=== PATIENT | female | born 1985 | race African-American/Black ===

== ENCOUNTER 2019-05-06 10:52 | Emergency (ER) | payer BC ==
[~2019-05-06] VITALS: Ht 154.9 cm; Wt 57.6 kg
[2019-05-06 11:20] LABS: URINE BILIRUBIN NEGATIVE (Negative); URINE BLOOD 1+ (Negative); URINE CLARITY CLEAR; URINE COLOR YELLOW; URINE GLUCOSE-RANDOM NEGATIVE (Negative); URINE KETONES NEGATIVE (Negative); URINE NITRITE-REFLEX NEGATIVE (Negative); URINE PROTEIN NEGATIVE (Negative); URINE UROBILINOGEN 0.2 E.U./dl (0.2-1.0)
[2019-05-06 11:21] LABS: URINE LEUKOCYTES-REFLEX 3+ (Negative)
[2019-05-06 11:32] LABS: BACTERIA-REFLEX 1-9 Few /HPF (None Seen); SQUAMOUS >10 Many /LPF (0-3); URINE RBC 0-2 Rare /HPF (0-2)
[2019-05-06 11:33] LABS: CASTS None Seen /LPF (None Seen); CRYSTALS None Seen /LPF (None Seen); MUCUS None Seen strn/LPF (None Seen)
[2019-05-06] MEDS ORDERED: MACROBID 100 M100 M2 PO (12:19)
[2019-05-06] MEDS ORDERED: DIFLUCAN150 M1 PO (12:19)
[2019-05-06] MEDS ORDERED: FLAGYL500 M1 PO (12:19)
[2019-05-06 12:43] VITALS: BP 137/85
== END 2019-05-06 12:44 | disposition home or self-care (01) ==
LOC: M.ERS 10:52
PROVIDERS: Nurse Practitioner Family
DX: N39.0 Urinary tract infection, site not specified (principal); N76.0 Acute vaginitis; B96.89 Other specified bacterial agents as the cause of diseases classified elsewhere; B37.3 Candidiasis of vulva and vagina